=== PATIENT | female | born 1950 | race Caucasian/White ===

== ENCOUNTER 2020-06-24 16:21 | Emergency (ER) | payer BC ==
[~2020-06-24] VITALS: Ht 162.6 cm; Wt 75.0 kg
[2020-06-24] MEDS ORDERED: ONDANSETRON 4MG ODT PO STA (17:06)
[2020-06-24 18:04] LABS: BASOPHILS % 0.9 % (0.0-2.0); EOSINOPHILS % 0.2 % (0.0-5.0); HEMATOCRIT. 41.8 % (36.0-48.0); HEMOGLOBIN. 14.3 g/dL (12.0-16.0); LYMPHOCYTES % 14.4 % (20.0-50.0); MEAN CORPUSCULAR HEMOGLOBIN 30.7 pg (28.0-32.0); MEAN CORPUSCULAR VOLUME 89.8 fL (81.0-99.0); MEAN PLATELET VOLUME 8.6 fl (7.4-10.4); MONOCYTES % 4.4 % (2.0-8.0); NEUTROPHILS % 80.1 % (40.0-76.0); PLATELET 290 x1000/uL (130-400); RED BLOOD CELL COUNT 4.65 mill/uL (4.2-5.4); RED CELL DISTRIBUTION WIDTH 13.5 % (11.6-14.6)
[2020-06-24 18:11] LABS: PROTHROMBIN TIME 10.9 sec (9.6-11.0)
[2020-06-24 18:11] LABS: CLARITY URINE CLOUDY (CLEAR); COLOR URINE YELLOW (YELLOW); KETONES URINE NEGATIVE (NEGATIVE); LEUKOCYTE ESTERASE URINE NEGATIVE (NEGATIVE); NITRITE URINE NEGATIVE (NEGATIVE); OCCULT BLOOD URINE 2+ (NEGATIVE); PH URINE >=9.0 (4.5-8.0); PROTEIN URINE 1+ (NEGATIVE); SPECIFIC GRAVITY URINE 1.015 (1.005-1.030)
[2020-06-24] MEDS ORDERED: IBUPROFEN 600MG TABLET PO ONE (18:30)
[2020-06-24] MEDS ORDERED: HYDROCODONE/ACETAMINOPHEN 10/325MG TABLET PO ONE (18:30)
[2020-06-24 18:52] LABS: CHLORIDE 101 mEq/L (98-107)
[2020-06-24] MEDS ORDERED: POTASSIUM CHLORIDE 20MEQ TABLET SR PO NR (19:00)
[2020-06-24] MEDS ORDERED: IBUPROFEN 800MG TABLET PO ONE (21:30)
[2020-06-24] MEDS ORDERED: ONDANSETRON 4MG ODT PO ONE (22:00)
[2020-06-24 22:08] VITALS: BP 163/83
== END 2020-06-24 22:14 | disposition home or self-care (01) ==
LOC: ER 16:21
DX: N20.0 Calculus of kidney (principal); K80.20 Calculus of gallbladder without cholecystitis without obstruction; E78.00 Pure hypercholesterolemia, unspecified; I10 Essential (primary) hypertension; Z98.62 Peripheral vascular angioplasty status; Z87.442 Personal history of urinary calculi
CPT/HCPCS: 36415; 74176; 80053; 81003; 83690; 85025; 85610; 93005; 99284; Q0162